=== PATIENT | female | born 1990 | race Caucasian/White ===

== ENCOUNTER 2017-04-18 19:43 | Emergency (ER) | payer MEDICAID, SELFPAY ==
[2017-04-18 19:44] VITALS: BP 165/91; PULSE 106; RESP 15; TEMP 35.7; BMI 41.5
--- NOTE | 2017-04-18 20:21 | ED.VISSUMM ---
- ER Visit Summary Date of Service: 04/18/17 Chief Complaint: Back pain History of Present Illness: The patient is a 26 F who states that today she went to get out of a chair she heard a pop in her left low back. This is followed by pain in the low back. She has pain worse with movement. She denies any radiation down the leg. She has had similar symptoms in the past but they usually cause radiation into the leg. He states that she has done physical therapy. Her back pain is been very episodic in nature. No IV drug use. No rashes. She states that she spent most of her day laying down. When her came home from work he convinced her to come to the hospital. No bowel or bladder dysfunction. Physical Examination: Afebrile vital signs are stable Gen: Well-nourished well-developed obesity Head: Normocephalic atraumatic Eyes: Perrl EOMI ENT: TMs clear no rhinorrhea moist mucous membranes Neck: Supple no lymphadenopathy no JVD nontender CVS: Regular rate rhythm no murmurs normal S1-S2 Respiratory: No distress clear to auscultation bilaterally chest nontender Abdomen: Soft nontender nondistended normal bowel sounds no masses Back: Patient has point tenderness over the right SI joint. The lumbar paraspinal musculature of the left. Spasm. Extremity: Nontender no edema Skin: Normal color no rash Neuro: alert orientated ?3 CN II-XII intact normal strength sensation reflexes antalgic gait cerebellar Psych: Normal affect normal mood Emergency Department Course and Treatment: The dose of Toradol and Valium and [place]. Nurse report was performed. I did prescribe her [place] Motrin and Valium. She is to return if worsening. She is to follow-up with her doctor. Return if worsening Impression: 1. Acute sacroiliitis 2. Acute low back pain This note was generated with [employer] dictation software. It may contain incorrect words, spelling, and punctuation that were not noted in review of the chart prior to signing ED Disposition - Plan for ED Patient: Disposition: Home or Assisted Living Chief Complaint: Back Instructions: ED Sprain Strain Lumbar, ED Sacroiliitis Prescriptions: Hydrocodone Bitart/Apap 5-325 [[place] 5/325] 1 - 2 tab PO Q4H PRN PRN 4 Days #20 tab PRN Reason: Pain Diazepam [Valium] 5 mg PO Q8 PRN #15 tab PRN Reason: Muscle Spasm Ibuprofen [Motrin] 800 mg PO TID PRN PRN #20 tab PRN Reason: Pain Referrals: Care Physician,No Primary [Primary Care Provider] - Additional Instructions: Follow up with your doctor in 1 week if not improving or return if worsening.
--- NOTE | 2017-04-18 20:25 | ED.DCSUM_ITS ---
- ER Visit Summary Date of Service: 04/18/17 Chief Complaint: Back pain History of Present Illness: The patient is a 26 F who states that today she went to get out of a chair she heard a pop in her left low back. This is followed by pain in the low back. She has pain worse with movement. She denies any radiation down the leg. She has had similar symptoms in the past but they usually cause radiation into the leg. He states that she has done physical therapy. Her back pain is been very episodic in nature. No IV drug use. No rashes. She states that she spent most of her day laying down. When her came home from work he convinced her to come to the hospital. No bowel or bladder dysfunction. Physical Examination: Afebrile vital signs are stable Gen: Well-nourished well-developed obesity Head: Normocephalic atraumatic Eyes: [place] EOMI ENT: TMs clear no rhinorrhea moist mucous membranes Neck: Supple no lymphadenopathy no JVD nontender CVS: Regular rate rhythm no murmurs normal S1-S2 Respiratory: No distress clear to auscultation bilaterally chest nontender Abdomen: Soft nontender nondistended normal bowel sounds no masses Back: Patient has point tenderness over the right SI joint. The lumbar paraspinal musculature of the left. Spasm. Extremity: Nontender no edema Skin: Normal color no rash Neuro: alert orientated ?3 CN II-XII intact normal strength sensation reflexes antalgic gait cerebellar Psych: Normal affect normal mood Emergency Department Course and Treatment: The dose of Toradol and Valium and [place]. Nurse report was performed. I did prescribe her [place] Motrin and Valium. She is to return if worsening. She is to follow-up with her doctor. Return if worsening Impression: 1. Acute sacroiliitis 2. Acute low back pain This note was generated with [employer] dictation software. It may contain incorrect words, spelling, and punctuation that were not noted in review of the chart prior to signing ED Disposition - Plan for ED Patient: Disposition: Home or Assisted Living Chief Complaint: Back Instructions: ED Sprain Strain Lumbar, ED Sacroiliitis Prescriptions: Hydrocodone Bitart/Apap 5-325 [[place] 5/325] 1 - 2 tab PO Q4H PRN PRN 4 Days #20 tab PRN Reason: Pain Diazepam [Valium] 5 mg PO Q8 PRN #15 tab PRN Reason: Muscle Spasm Ibuprofen [Motrin] 800 mg PO TID PRN PRN #20 tab PRN Reason: Pain Referrals: Care Physician,No Primary [Primary Care Provider] - Additional Instructions: Follow up with your doctor in 1 week if not improving or return if worsening.
[2017-04-18] MEDS: HYDROcodone Bitartrate/Apap 5/325 Tablet PO (20:37)
[2017-04-18] MEDS: Ketorolac 60 MG/2 ML Vial IM (20:37)
[2017-04-18] MEDS: diazePAM 5 MG Tablet PO (20:37)
== END 2017-04-18 21:01 | disposition home or self-care (01) ==
PROVIDERS: Emergency Provider Emergency Medicine
DX: M46.1 Sacroiliitis, not elsewhere classified (principal); M54.5 Low back pain; E66.9 Obesity, unspecified; Z68.41 Body mass index [BMI] 40.0-44.9, adult
CPT/HCPCS: 96372; 99283

== ENCOUNTER 2018-03-20 12:56 | Emergency (ER) | payer MEDICAID, SELFPAY ==
[2018-03-20 12:57] VITALS: BP 153/86; PULSE 112; RESP 16; TEMP 36.7; O2SAT 100; BMI 44.4
--- NOTE | 2018-03-20 13:28 | ED.DCSUM_ITS ---
- ER Visit Summary Date of Service: 03/20/18 Chief Complaint: [Right eye discomfort] History of Present Illness: The patient is a 27 F [presents the emergency department with discomfort to the right eye that started this morning. Patient states that she try to put her right contact in and after doing so developed discomfort and irritation. Patient had a burning sensation and then she removed her contact however she continues to have discomfort. She denies any photophobia. She denies any real significant pain but states that she feels better when her eyes closed. She denies any visual change. Denies recent illness.] Physical Examination: [HEENT-PERRLA, EOMI. Cranial nerves II through XII grossly intact. TMs clear. Mucous membranes moist. No adenopathy. Right eye- no foreign bodies noted underneath the lids. Has some diffuse conjunctival erythema. Cardiovascular-regular rate and rhythm without murmur or ectopy Lungs-clear to auscultation, chest wall stable without crepitus or subcu emphysema Abdomen-normoactive bowel sounds, soft, nontender, no rebound or rigidity, no peritoneal signs. Extremities-intact ?4, normal range of motion, normal pulses, atraumatic] Test Results: [] Emergency Department Course and Treatment: [Right eye was anesthetized with tetracaine and fluorescein stain was applied. I do not appreciate any corneal abrasions.] Treatment Plan: [She was started on gentamicin ophthalmic drops] Disposition: [Discharged home in stable condition. Patient will be referred to Dr. Chapa for follow-up within the next 1-2 days] Impression: [Conjunctivitis right eye] This note was generated with [employer] dictation software. It may contain incorrect words, spelling, and punctuation that were not noted in review of the chart prior to signing ED Disposition - Plan for ED Patient: Chief Complaint: Eye Problem Referrals: Walker Pink MD [Primary Care Provider] -
--- NOTE | 2018-03-20 13:28 | ED.DEP ---
ED Disposition - Plan for ED Patient: Chief Complaint: Eye Problem Instructions: ED Conjunctivitis Bacterial Referrals: Walker Pink MD [Primary Care Provider] - Kayode Chapa MD [STAFF PHYSICIAN] - 1 Day for another exam
[2018-03-20] MEDS: Tetracaine 0.5% Ophthalmic Bottle 1 DRP RIGHT EYE (13:30)
[2018-03-20] MEDS: Gentamicin Sulfate 1 OPTH.BTL 2 DRP RIGHT EYE (13:37)
== END 2018-03-20 13:59 | disposition home or self-care (01) ==
LOC: ED 13:50
PROVIDERS: Emergency Provider Emergency Medicine; Family Provider Family Medicine; PCP Family Medicine
DX: H10.31 Unspecified acute conjunctivitis, right eye (principal)
CPT/HCPCS: 99282

== ENCOUNTER 2023-12-12 13:18 | Emergency (ER) | payer SELFPAY ==
[2023-12-12 13:21] VITALS: BP 138/97; PULSE 88; RESP 18; TEMP 36.3; O2SAT 99; BMI 42.7
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
[2023-12-12 14:59] LABS: Absolute Lymphocyte Count 1.98 X10^3/uL (0.83-4.51); Absolute Neutrophil Count 8.6 X10^3/uL (2.0-7.7); Basophil# 0.03 X10^3/uL; Basophil% 0.3 % (0-1); Eosinophil# 0.01 X10^3/uL; Eosinophils% 0.1 % (0-5); Hematocrit 41.9 % (37-47); Hemoglobin 13.5 g/dL (12.0-15.0); Lymphocyte # 1.98 X10^3/ul (0.83-4.51); Lymphocyte % 17.5 % (19-41); Mean Corp Hgb Conc 32.2 g/dL (32-36); Mean Corpuscular Hgb 26.3 pg (27.0-32.0); Mean Corpuscular Volume 81.5 fL (81-99); Mean Platelet Vol. 9.5 fl (6.2-12.0); Monocyte# 0.64 X10^3/uL; Monocyte% 5.7 % (0-10); NRBC Flagged by Analyzer 0 % (0-5); Platelet Count 378 K/mm3 (150-450); RBC Distribution Width CV 13.2 % (11.6-14.6); RBC Distribution Width SD 39.2 fl (35.1-43.9); Red Blood Count 5.14 M/mm3 (4.2-5.4); White Blood Count 11.3 K/mm3 (4.4-11.0)
[2023-12-12 15:05] LABS: Amphetamine Urine VISTA NEGATIVE (<1000 ng/mL); Barbiturate Urine VISTA NEGATIVE (< 200 ng/mL); Benzodiazepine Urine VISTA NEGATIVE (< 200 ng/mL); Cocaine Urine VISTA NEGATIVE (< 300 ng/mL); Ecstacy Urine VISTA NEGATIVE (< 500 ng/mL); Methadone Urine VISTA NEGATIVE (< 300 ng/mL); PCP Urine VISTA NEGATIVE (< 25 ng/mL); THC Urine VISTA NEGATIVE (< 50 ng/mL); Vista UDS pH Range 5
[2023-12-12 15:11] LABS: Anion Gap 10 (5-15); BUN 9 mg/dL (7-18); BUN/Creat Ratio 12.4 RATIO (10-20); Calcium,Total 9.6 mg/dL (8.5-10.1); Chloride 107 mmol/L (98-107); Creatinine, Serum 0.72 mg/dL (0.55-1.02); EST Glomerular Filtration Rate 98 mL/min (>60); Est Glom Filt Rate - Afr Amer 118 mL/min (>60); Estimated Creatinine Clearance 145.34 ml/min; Glucose 92 mg/dL (74-106); Potassium 3.7 mmol/L (3.5-5.1); Sodium Level 138 mmol/L (136-145)
[2023-12-12 15:12] LABS: Internal QC Validated? YES +Cl - CLEAR BKGD; Pregnancy, Serum, hCG Quali. NEGATIVE Negative; Record Kit Lot#, Serum Preg. 869294
[2023-12-12 16:03] LABS: Alcohol, Blood (Medical)-Serum < 3.0 mg/dL
--- NOTE | 2023-12-12 16:20 | ED.RN ---
FAXED CHART TO CRISIS
[2023-12-12] MEDS: LORazepam 1 MG Tablet PO (18:47)
[2023-12-12 18:52] VITALS: BP 168/97; PULSE 91; RESP 18
[2023-12-12 20:14] VITALS: BP 141/81; PULSE 90; RESP 16; TEMP 36.3; O2SAT 100
[2023-12-12 22:00] VITALS: BP 141/90; PULSE 89; RESP 16; O2SAT 97
[2023-12-12] MEDS: Ondansetron ODT 4 MG Tablet PO (22:52)
== END 2023-12-12 23:10 | disposition short-term general hospital (02) ==
PROVIDERS: Emergency Provider Emergency Medicine; Visit Provider Emergency Medicine
DX: F32.A Depression, unspecified (principal); R45.851 Suicidal ideations
CPT/HCPCS: 80048; 80307; 82077; 84703; 85025; 99284